=== PATIENT | male | born 1985 | race Caucasian/White ===

== ENCOUNTER 2018-07-17 02:11 | Emergency (ER) | payer BC ==
[~2018-07-17] VITALS: Ht 177.8 cm; Wt 114.8 kg
[2018-07-17 02:16] VITALS: Ht 177.8 cm; Wt 114.8 kg
[2018-07-17 02:50] LABS: microscopic required? NO
[2018-07-17 02:53] LABS: BASOPHIL % 0.5 % (0-2); PLATELET COUNT 167 x10^3mcL (130-400)
[2018-07-17 02:55] LABS: UA SPECIFIC GRAVITY 1.025 (1.005-1.035); urine erythrocyte NEGATIVE (NEGATIVE)
[2018-07-17 03:03] LABS: AMPHETAMINE QUAL UR NONE DETECTED (See below)
[2018-07-17 03:04] LABS: CALCIUM 8.5 mg/dL (8.5-10.1); CARBON DIOXIDE 25.6 mmol/L (21-32); CHLORIDE SERUM 106 mmol/L (98-107); GFR1 > 60 mL/min; GLUCOSE SERUM 94 mg/dL (74-106); SODIUM SERUM 142 mmol/L (136-145)
[2018-07-17 03:08] LABS: ALBUMIN 3.8 g/dL (3.4-5.0); ALKALINE PHOSPHATASE 66 U/L (46-116); ALT/SGPT 37 U/L (16-63); AST/SGOT 23 U/L (15-37); BILIRUBIN TOTAL 0.51 mg/dL (0.20-1.00); HDL CHOLESTEROL 59 mg/dL (40-60); LIPASE 143 IU/L (73-393); TRIGLYCERIDES 101 mg/dL (<150)
[2018-07-17 03:10] LABS: CHOLESTEROL 203 mg/dL (<200); CHOLESTEROL/HDL RATIO 3.4
[2018-07-17 03:18] LABS: T3 TOTAL 1.37 ng/mL
[2018-07-17 03:20] LABS: FREE T4 0.94 ng/dL (0.76-1.46); FREE THYROXINE INDEX 2.4 ug/dL (1.4-4.5); T4(THYROXINE) 6.8 ug/dL (4.7-13.3)
[2018-07-17 05:16] VITALS: BP 154/97
== END 2018-07-17 05:05 | disposition home or self-care (01) ==
LOC: ED 02:11
PROVIDERS: Specialist
DX: R07.89 Other chest pain (principal)
CPT/HCPCS: 36415; 83880; 84439; Q0092

== ENCOUNTER 2019-05-02 06:51 | Emergency (ER) | payer BC ==
[~2019-05-02] VITALS: Ht 177.8 cm; Wt 116.3 kg
[2019-05-02 06:56] VITALS: Ht 177.8 cm; Wt 116.3 kg
[2019-05-02 07:19] LABS: BASOPHIL % 0.4 % (0-2); PLATELET COUNT 181 x10^3mcL (130-400); RED CELL DISTRIBUTION WIDTH 12.6 % (11.5-14.5)
[2019-05-02 07:29] LABS: CALCIUM 8.7 mg/dL (8.5-10.1); CARBON DIOXIDE 27.4 mmol/L (21-32); CHLORIDE SERUM 106 mmol/L (98-107); CREATININE SERUM 1.1 mg/dL (0.7-1.3); GFR1 > 60 mL/min; GLUCOSE SERUM 93 mg/dL (74-106); SODIUM SERUM 142 mmol/L (136-145)
[2019-05-02 07:33] LABS: ALKALINE PHOSPHATASE 58 U/L (46-116); ALT/SGPT 60 U/L (16-63); AST/SGOT 21 U/L (15-37); BILIRUBIN TOTAL 0.7 mg/dL (0.20-1.00); TOTAL PROTEIN, SERUM 7.3 g/dL (6.4-8.2)
[2019-05-02 07:53] VITALS: BP 116/79
== END 2019-05-02 07:53 | disposition home or self-care (01) ==
LOC: ED 06:51
PROVIDERS: Emergency Medicine
DX: R07.89 Other chest pain (principal)
CPT/HCPCS: 36415; Q0092